=== PATIENT | male | born 2000 | race Caucasian/White ===

== ENCOUNTER 2023-11-17 16:20 | Emergency (ER) | payer SELFPAY ==
[~2023-11-17] VITALS: Ht 180.3 cm; Wt 104.3 kg
[2023-11-17 16:32] VITALS: O2SAT 97
[2023-11-17 18:08] LABS: BASOPHILS % 0.7 % (0.0-2.0); DIFFERENTIAL COMMENT 0; EOSINOPHILS % 1.7 % (0.0-5.0); HEMATOCRIT. 43.7 % (42.0-52.0); HEMOGLOBIN. 14.6 g/dL (14.0-18.0); LYMPHOCYTES % 27.3 % (20.0-50.0); MEAN CORPUSCULAR HEMOGLOBIN 31.4 pg (28.0-32.0); MEAN CORPUSCULAR HGB CONC 33.5 g/dL (31.0-37.0); MEAN CORPUSCULAR VOLUME 93.7 fL (80.0-94.0); MEAN PLATELET VOLUME 11.8 fl (7.4-10.4); MONOCYTES % 7.3 % (2.0-8.0); PLATELET 168 x1000/uL (130-400); RED BLOOD CELL COUNT 4.66 mill/uL (4.7-6.1); RED CELL DISTRIBUTION WIDTH 13.4 % (11.6-14.6); WHITE BLOOD COUNT 9.1 x1000/uL (4.5-11.0)
[2023-11-17 18:18] LABS: CHLORIDE 108 mEq/L (98-107); POTASSIUM 4.2 mEq/L (3.5-5.1); SODIUM 140 mEq/L (136-145)
[2023-11-17 18:19] LABS: CALCIUM 9.5 mg/dL (8.7-10.4); CARBON DIOXIDE 29 mEq/L (21-32)
[2023-11-17 18:24] LABS: GLUCOSE 84 mg/dL (70-105); UREA NITROGEN BLOOD 14 mg/dL (9-23)
[2023-11-17 18:26] LABS: ALANINE AMINOTRANSFERASE 28 IU/L (10-49); ALBUMIN 4.8 g/dL (3.2-4.8); ASPARTATE AMINOTRANSFERASE 26 IU/L (<34); PROTEIN TOTAL 7.2 g/dL (6.0-8.3)
[2023-11-17] MEDS ORDERED: NAPR-681 MT (19:31)
[2023-11-17 20:11] VITALS: BP 127/75; PULSE 77; RESP 18; TEMP 98.3
== END 2023-11-17 20:13 | disposition home or self-care (01) ==
LOC: ER 16:20
DX: R20.2 Paresthesia of skin (principal); M79.10 Myalgia, unspecified site
CPT/HCPCS: 36415; 73090; 73562; 80053; 85025; 99284